=== PATIENT | female | born 1985 | race Caucasian/White ===

== ENCOUNTER 2017-04-04 16:09 | Inpatient (IN) | payer BC, OTHER ==
[~2017-04-04] VITALS: Ht 162.6 cm; Wt 51.3 kg
--- NOTE | 2017-04-04 00:30 | NUR ---
PREADMISSION NOTE: 31 year old, well-nourished, caucasion female seen sitting in [facility] Intake chair. Upon greeting her, patient smiles and states, "hi, how are you?" Patient states that she is allergic to Toradol,Amoxicillin,Buspar and Darvocet, however she states that she does take Ibuprofen and other NSAIDS with no negative issues. Patient further states, " As a matter of fact, I took 800 of Ibuprofen before I came here, because I fell down some stairs last night and my back and left arm hurt a little from the fall and the Ibuprofen helped". Patient states that she brought no medications with her to [facility] and that she has pre-existing conditions of: Degenerative disc disease, Anxiety, Depression and TMJ and she has had 3 seizures (drug-related) in her life, the last one being 6 months ago. Explanation given to patient about [facility] Recovery floor protocol and patient responded," Okay". Vital signs are: 98-102-18 127/87, O2 Sat 98%. Patient is being admitted for Fentanyl withdrawal.
[2017-04-05] VITALS: BP 130/96
--- NOTE | 2017-04-05 00:47 | NUR ---
ADMISSION NOTE: Patient admitted to [facility], to room # 314, ambulatory, after being given a tour of [facility]. Patient's gait is steady. Patient's color is pink and her skin is clean, warm, dry and intact. Medium-sized round shaped reddened area noted on left elbow area. Patient states that she "fell down 6 to 7 stairs last night at home in [place] and since then her left arm and her back hurt a little bit. Patient states that she did not seek any medical attention for her fall, though she did take 8oo mg of Ibuprofen for pain relief, which she states really helped her. Patient states that her back and left arm discomfort at this time is an 8/10 pain scale. Patient moves all her extremities fully WNL. Patient is 5 feet and 4 inches tall and she weighs 113 lbs. Patient states that she has pre-existing conditions of: Anxiety, Depression, Degenerative Disc Disease and TMJ, "though I don't have the TMJ all the time." Patient states that she has no PCP and has brought no medications with her to [facility]. Patient states that she has had 3 total seizures ( drug-related) in her life, the last one occurring 6 months ago. Patient states that though she has an allergy to: amoxicillin, darvocet, buspar and toradol, she takes other NSAIDS, including ibuprofen, with no problems or negative reactions. This is patient's first detox admission anywhere and she is admitted for Fentanyl withdrawal. Patient states that she has been using Fentanyl daily, 1 gram, snorted for the past 3 months, last use was on 04/04/17, in AM, " a very small amount". Patient started using Fentanyl in November. Patient is oriented to person, place, day and her personal situation. Reoriented to date and time. Patient took sandwich snack and juice. Vital signs are: 97.9-106-18 130/96, O2 Sat 100%, COWS 7. Patient is cooperative and verbally appropriate for the most part, when interacting with nurse, however mood/affect is flat, depressed but also anxious. Patient cries easily but stops abruptly. Patient states that she basically never leaves her house much and she is prone to having panic attacks. Patient oriented to her room and nurse call light. Seizure precautions in place. Bed is locked and in lowest position, bed rails are up X 2 and call light within patient's easy reach. Addendum: 04/05/17 at 1101 by SKY KUMAR RN PT STATES SHE TOOK A VALIUM( UNSURE OF MG) A COUPLE OF DAYS AGO BUT DOES NOT TAKE BZOS. REGULARLY.
[2017-04-05 01:10] LABS: *URINE HCG, QUAL NEGATIVE (NEGATIVE)
[2017-04-05 01:13] LABS: *AMPHETAMINE, URINE NEGATIVE (NEGATIVE); *BARBITURATE, URINE NEGATIVE (NEGATIVE); *CANNABINOID, URINE NEGATIVE (NEGATIVE); *COCCAINE, URINE NEGATIVE (NEGATIVE); *OPIATE, URINE POSITIVE (NEGATIVE); *PHENCYCLIDINE SCREEN,URINE NEGATIVE (NEGATIVE)
[2017-04-05] MEDS: diphenhydrAMINE 50 MG CAPSULE PO PRN (01:57)
[2017-04-05] MEDS: IBUPROFEN 400 MG TABLET PO PRN ×2 (01:58→18:17)
[2017-04-05] MEDS: CLONIDINE HCL 0.1 MG TABLET PO PRN ×3 (01:58→21:10)
[2017-04-05] MEDS: HYDROXYZINE PAMOATE 25 MG CAPSULE PO PRN ×3 (01:59→18:17)
[2017-04-05] MEDS ORDERED: LOPERAMIDE HCL 2 MG CAPSULE PO PRN ×2 (02:00)
[2017-04-05] MEDS ORDERED: BUPRENORPHINE HCL 2 MG TAB.SUBL SL PRN ×2 (02:00→13:00)
[2017-04-05] MEDS ORDERED: DICYCLOMINE HCL 20 MG TABLET PO PRN (02:00)
[2017-04-05] MEDS ORDERED: MIRALAX 17 GM POWD.PACK PO PRN (02:00)
[2017-04-05] MEDS ORDERED: ACETAMINOPHEN 325 MG TABLET PO PRN (02:00)
[2017-04-05] MEDS ORDERED: MAG HYDROX/AL HYDROX/SIMETH 30 ML LIQUID UDC PO PRN (02:00)
[2017-04-05] MEDS ORDERED: MAGNESIUM HYDROXIDE 30 ML LIQUID UDC PO PRN (02:00)
[2017-04-05] MEDS ORDERED: ONDANSETRON 4 MG/2 ML VIAL IM PRN (02:00)
[2017-04-05] MEDS ORDERED: IBUPROFEN 400 MG TABLET ONE (02:03)
[2017-04-05] MEDS ORDERED: diphenhydrAMINE 50 MG CAPSULE ONE (02:04)
[2017-04-05] MEDS ORDERED: CLONIDINE HCL 0.1 MG TABLET ONE (02:04)
[2017-04-05] MEDS ORDERED: HYDROXYZINE PAMOATE 25 MG CAPSULE ONE (02:05)
[2017-04-05 04:00] VITALS: BP 121/88
--- NOTE | 2017-04-05 06:30 | NUR ---
0630 Patient slept a total of 3 hours and she had 1 void and no stools. Total intake was 300 ml. V/SS afebrile, last COWS 4 at 0400. Patient is presently sleeping soundly in stable condition with eyes closed and respirations unlabored at 12.
--- NOTE | 2017-04-05 07:05 | NUR ---
Patient not awakened for COWS assess.
[2017-04-05 08:00] VITALS: BP 107/80
[2017-04-05 08:08] LABS: BASOPHILS # (AUTO) 0.1 K/uL (0.0-8.0); BASOPHILS % (AUTO) 0.7 % (0.0-2.0); EOSINOPHILS # (AUTO) 0.2 K/uL (0.0-0.7); HEMATOCRIT 41.7 % (37-47); HEMOGLOBIN 13.9 G/DL (12.0-16.0); LYMPHOCYTES # (AUTO) 2.4 K/UL (0.8-4.8); LYMPHOCYTES % (AUTO) 22.8 % (20.5-51.5); MEAN CORPUSCULAR HEMOGLOBIN 30.2 UUG (27.0-31.0); MEAN CORPUSCULAR HGB CONC 33 g/dL (32.0-37.0); MEAN CORPUSCULAR VOLUME 90.4 FL (81.0-99.0); MONOCYTES # (AUTO) 0.7 K/UL (0.1-1.30); MONOCYTES % (AUTO) 6.4 % (0.0-11.0); NEUTROPHILS # (AUTO) 7.2 K/UL (1.8-8.9); NEUTROPHILS % (AUTO) 68.1 % (38.5-71.5); PLATELET COUNT (AUTO) 214 K/UL (150-450); RED BLOOD CELL COUNT(AUTO) 4.61 MIL/UL (4.2-5.4); WHITE BLOOD COUNT (AUTO) 10.6 K/UL (4.0-11.2)
--- NOTE | 2017-04-05 08:15 | NUR ---
START OF SHIFT: RECEIVED PT A/O X 4. SHE REPORTS ANXIETY,CHILLS,SWEATS,BODY ACHES,MUSCLE CRAMPS AND IRRITABILITY.COWS 4. PRN CLONIDINE,VISTARIL,ROBAXIN AND BENTYL GIVEN TO MANAGE S/S OF W/D. WILL MONITOR EFFECTIVENESS OF PRN MEDS. PPD PLANTED TO [facility]. ENCOURAGED INCREASED FLUIDS. SUBUTEX PRN AVAILABLE IF NEEDED. EDUCATED PT ON MEDICATIONS AND TREATMENT PLAN. WILL CONTINUE TO PROVIDE SAFE AND SUPPORTIVE ENVIRONMENT.
[2017-04-05 08:57] LABS: ETHANOL < 3 MG/DL (0-0)
[2017-04-05 09:00] LABS: ALANINE AMINOTRANSFERASE 18 U/L (14-59); ALKALINE PHOSPHATASE 166 U/L (50-136); AMYLASE 55 U/L (25-115); BILIRUBIN,TOTAL 0.3 mg/dL (0.2-1.0); CARBON DIOXIDE 28 mmol/L (21-32); CHLORIDE 103 mmol/L (98-107); CREATININE 0.9 mg/dL (0.6-1.3); GLUCOSE 104 mg/dL (74-106); MAGNESIUM 1.9 mg/dL (1.8-2.4); TOTAL PROTEIN, SERUM 7.1 g/dL (6.4-8.2); UREA NITROGEN, BLOOD 10 mg/dL (7-18)
[2017-04-05] MEDS ORDERED: TUBERCULIN,PURIF.PROT.DERIV. 5 TU/0.1 ML TEST ID ONE (09:00)
[2017-04-05 09:19] LABS: ASPARTATE AMINOTRANSFERASE 17 U/L (15-37); LIPASE 120 U/L (73-393)
[2017-04-05] MEDS: METHOCARBAMOL 750 MG TABLET PO PRN ×2 (09:54→21:10)
[2017-04-05] MEDS: MULTIVITAMINS,THERAPEUTIC TABLET PO SCH (09:54)
[2017-04-05 10:38] LABS: THYROID STIMULATING HORMONE 0.335 mIU/mL (0.358-3.740)
[2017-04-05 12:00] VITALS: BP 118/81
--- NOTE | 2017-04-05 15:40 | NUR ---
PRN SUBUTEX 4 MG SL GIVEN FOR REPORTED CHILLS,BODY ACHES,SWEATS,ANXIETY AND RESTLESSNESS AND IRRITABILITY. COWS 12
[2017-04-05 16:00] VITALS: BP 143/88
--- NOTE | 2017-04-05 16:10 | NUR ---
COWS 8. PT STATES SHE FEELS MUCH BETTER. SUBUTEX PRN EFFECTIVE.
--- NOTE | 2017-04-05 18:47 | NUR ---
END OF SHIFT: PT IS A/O X 4. SHE C/O BODY ACHES CHILLS,SWEATS AND ANXIETY THIS AM COWS 4 AND PRN VISTARIL,CLONIDINE,ROBAXIN GIVEN AND MILDLY EFFECTIVE. LATER IN SHIFT PT REPORTED SAME COMPLAINTS AND WAS FIDGETY AND IRRITABLE. COWS 12. PRN SUBUTEX 4 MG SL GIVEN AND EFFECTIVE. PT ATTENDED GROUPS AND WAS COMPLIANT WITH INCREASED FLUIDS. PPD PLANTED TO [facility] . WILL PASS SHIFT REPORT TO ONCOMING NIGHT NURSE.
[2017-04-05 20:00] VITALS: BP 116/75
--- NOTE | 2017-04-05 20:00 | NUR ---
START OF SHIFT NOTE PATIENT IN THE ROOM. ALERT AND ORIENTED X 4. RESPIRATION EVEN AND UNLABORED. PATIENT STATES SHES BETTER THAN THIS MORNING. PATIENT C/O HOT AND COLD SWEATS, ANXIETY . NO N/V, C/O PAIN ON LEFT ARM 04/25. RECEIVED REPORT FROM DAY SHIFT NURSE. PATIENT IS A 31 YEAR OLD FEMALE, ADMITTED FOR FENTANYL DEPENDENCE. PATIENT IS TO START SUBUTEX TAPER TOMORROW. PATIENT IS FULL CODE, REGULAR DIET AND ALLERGIC TO AMOXICILLIN , TORADOL, DARVOCET AND BUSPAR . DENIES ALLERGY TO OTHER NSAIDS. UPON ADMISSION, PATIENT IS ON FENTANYL 1 GRAM (SNORTED) FOR 3 MONTHS. 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 PATIENT WITH HISTORY OF 3 SEIZURES (LAST ONE 6 MONTHS AGO). PATIENT IS FIRST TIME IN DETOX TREATMENT. PPD GIVEN TO [facility]. SKIN INTACT.LEFT ELBOW AREA SLIGHTLY REDDENED DUE TO FALL ON 04/03/17 PATIENT WAS GIVEN PRN CLONIDINE, MOTRIN, ROBAXIN , VISTARIL AND ONE TIME SUBUTEX . LAST COWS 8. PATIENT ATTENDING GROUPS. EATING AND DRINKING FLUIDS WELL. ON FALL/SEIZURE PRECAUTION. SAFETY MEASURES IN PLACE. CALL LIGHT IN REACH. WILL CONTINUE TO MONITOR.
[2017-04-05] MEDS: LEVETIRACETAM 500 MG TABLET PO SCH (21:10)
--- NOTE | 2017-04-05 21:10 | NUR ---
PRN CLONIDINE AND ROBAXIN ADMINISTRATION PATIENT WAS GIVEN CLONIDINE FOR SWEATING , ANXIETY AND ROBAXIN FOR LEFT ARM PAIN 04/25. WILL MONITOR FOR EFFECTIVENESS
--- NOTE | 2017-04-05 22:10 | NUR ---
PRN CLONIDINE AND ROBAXIN RE-ASSESSMENT PATIENT STATES CLONIDINE AND ROBAXIN HELPFUL. ANXIETY SUBSIDED AND PAIN LEVEL 2/10, TOLERABLE. WILL CONTINUE TO MONITOR.
[2017-04-06] VITALS (8 sets, daily range): BP systolic 90–116; BP diastolic 47–72
[2017-04-06] MEDS: HYDROXYZINE PAMOATE 25 MG CAPSULE PO PRN ×4 (00:36→21:31)
[2017-04-06] MEDS: diphenhydrAMINE 50 MG CAPSULE PO PRN (00:36)
--- NOTE | 2017-04-06 00:36 | NUR ---
PRN VISTARIL AND BENADRYL ADMINISTRATION PATIENT C/O ANXIETY AND REQUESTS FOR SLEEP AID. PRN VISTARIL AND BENADRYL GIVEN. WILL MONITOR FOR EFFECTIVENESS
--- NOTE | 2017-04-06 01:36 | NUR ---
PRN BENADRYL AND VISTARIL RE-ASSESSMENT PATIENT IN BED, ASLEEP. RESPIRATION EVEN AND UNLABORED. RR 14. NO S/S OF DISTRESS. SAFETY MEASURES IN PLACE. CALL LIGHT IN REACH. WILL CONTINUE TO MONITOR.
--- NOTE | 2017-04-06 07:10 | NUR ---
END OF SHIFT NOTE PATIENT REMAIN ALERT AND ORIENTED X 4. RESPIRATION EVEN AND UNLABORED.PATIENT C/O HOT AND COLD SWEATS, ANXIETY . NO N/V, C/O PAIN ON LEFT ARM 04/25 DURING SHIFT. PATIENT IS A 31 YEAR OLD FEMALE, ADMITTED FOR FENTANYL DEPENDENCE. PATIENT IS TO START SUBUTEX TAPER TODAY. PATIENT IS FULL CODE, REGULAR DIET AND ALLERGIC TO AMOXICILLIN , TORADOL, DARVOCET AND BUSPAR . DENIES ALLERGY TO OTHER NSAIDS. UPON ADMISSION, PATIENT IS ON FENTANYL 1 GRAM (SNORTED) FOR 3 MONTHS. 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 PATIENT WITH HISTORY OF 3 SEIZURES (LAST ONE 6 MONTHS AGO). PATIENT IS FIRST TIME IN DETOX TREATMENT. PPD GIVEN TO [facility]. SKIN INTACT.LEFT ELBOW AREA SLIGHTLY REDDENED DUE TO FALL ON 04/03/17. PATIENT WAS GIVEN PRN CLONIDINE, ROBAXIN AT 2110 AND VISTARIL AND BENADRYL AT 0036 . LAST COWS 1 . PATIENT ATTENDING GROUPS. EATING AND DRINKING FLUIDS WELL. PATIENT COMPLIANT WITH MEDICATION AND TREATMENT PLAN. REMAIN FREE OF INJURY. NO EPISODE OF SEIZURE DURING SHIFT. ON FALL/SEIZURE PRECAUTION. SAFETY MEASURES IN PLACE. CALL LIGHT IN REACH. WILL CONTINUE TO MONITOR. SLEPT 6 HOURS . FLUID INTAKE 1,796 ML. VOIDED X 6. NO BM.
[2017-04-06 08:08] LABS: HEPATITIS B SURFACE AG Negative (Negative)
[2017-04-06] MEDS ORDERED: 4 DAY TAPER BUPRENORPHINE -SERENITY PROTOCOL SL PRN (09:00)
[2017-04-06] MEDS: BUPRENORPHINE HCL 2 MG TAB.SUBL SL SCH ×3 (09:16→21:31)
[2017-04-06] MEDS: MULTIVITAMINS,THERAPEUTIC TABLET PO SCH (09:17)
[2017-04-06] MEDS: LEVETIRACETAM 500 MG TABLET PO SCH ×2 (09:17→21:26)
[2017-04-06] MEDS: METHOCARBAMOL 750 MG TABLET PO PRN ×2 (09:19→21:30)
[2017-04-06] MEDS: IBUPROFEN 400 MG TABLET PO PRN ×2 (09:19→15:24)
--- NOTE | 2017-04-06 09:20 | NUR ---
PRN ROBAXIN, IBUPROFEN AND VISTARIL Patient complained of body aches (LUE and back) and anxiety. PRN robaxin, ibuprofen and vistaril given. Will monitor effectiveness of medications.
--- NOTE | 2017-04-06 10:00 | NUR ---
START OF SHIFT Received report from airplane rental clerk nurse. Patient is 31 year old female admitted for medically supervised withdrawal from opiates. Patient is full code with allergies to amoxicillin, buspirone, ketorolac, and propoxyphene. Started Subutex Taper this AM. On assessment this AM: COWS: 4. Denies SOB, chest pain. vitals signs WNL. Reports sweating, body aches (6/10, prn robaxin and ibuprofen given), stuffy nose, anxiety (prn vistaril given). Med compliant with AM meds. Patient reported having good appetite and consumed 100% breakfast. Patient was encouraged to attend group meetings today. Will continue to monitor patient.
--- NOTE | 2017-04-06 10:20 | NUR ---
REASSESSMENT (PRN ROBAXIN, IBUPROFEN AND VISTARIL) Patient reports feeling better, anxiety resolved. Pain also decreased to 4/10 from 6/10.
[2017-04-06] MEDS: CLONIDINE HCL 0.1 MG TABLET PO PRN (13:28)
--- NOTE | 2017-04-06 20:00 | NUR ---
START OF SHIFT NOTE PATIENT IN HER ROOM. UPON GREETING, PATIENT C/O ANXIETY, SWEATING. GENERALIZED BODY ACHES 04/25. PATIENT ALERT AND ORIENTED X 4. RESPIRATION EVEN AND UNLABORED. NO N/V. RECEIVED REPORT FROM DAY SHIFT NURSE. PATIENT IS A 31 YEAR OLD FEMALE , ADMITTED FOR FENTANYL WITHDRAWAL. PATIENT STARTED ON SUBUTEX TAPER TODAY. PATIENT IS FULL CODE, REGULAR DIET AND ALLERGIC TO AMOXICILLIN, TORADOL, DARVOCET AND BUSPAR. DENIES ALLERGY TO OTHER NSAIDS. UPON ADMISSION, PATIENT IS USING FENTANYL 1 GRAM (SNORTED) FOR 3 MONTHS. PATIENT REPORTS PMH OF ANXIETY, DEPRESSION. 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 HISTORY OF 3 SEIZURES TOTAL (LAST ONE 6 MONTHS AGO). SKIN INTACT. PATIENT STATES SHE FELL PRIOR TO ADMISSION. LEFT ELBOW AREA SLIGHTLY REDDENED. PATIENT WAS GIVEN PRN ROBAXIN, VISTARIL, MOTRIN AND CLONIDINE . LAST COWS 4. SAFETY MEASURES IN PLACE. CALL LIGHT IN REACH. WILL CONTINUE TO MONITOR. SLEPT HOURS. FLUID INTAKE ML. VOIDED X . BM
[2017-04-06] MEDS: TRAZODONE 100 MG TABLET PO SCH (21:30)
[2017-04-06] MEDS: GABAPENTIN 300 MG CAPSULE PO SCH (21:30)
--- NOTE | 2017-04-06 21:30 | NUR ---
PRN VISTARIL AND ROBAXIN ADMINISTRATION PATIENT C/O ANXIETY AND GENERALIZED BODY ACHES 04/25. PRN VISTARIL AND MOTRIN GIVEN. WILL MONITOR FOR EFFECTIVENESS
--- NOTE | 2017-04-06 22:30 | NUR ---
PRN ROBAXIN AND VISTARIL RE-ASSESSMENT PATIENT STATES ANXIETY SUBSIDED AND PAIN LEVEL 2/10, TOLERABLE . WILL CONTINUE TO MONITOR.
[2017-04-07] VITALS: BP 96/60
[2017-04-07] MEDS: diphenhydrAMINE 50 MG CAPSULE PO PRN (00:37)
[2017-04-07] MEDS: IBUPROFEN 400 MG TABLET PO PRN ×2 (00:37→14:48)
--- NOTE | 2017-04-07 00:37 | NUR ---
PRN BENADRYL AND MOTRIN ADMINISTRATION PATIENT C/O LOWE BACK PAIN 04/25 AND REQUESTS FOR SLEEP AID. PRN BENADRYL AND MOTRIN GIVEN. WILL MONITOR FOR EFFECTIVENESS
--- NOTE | 2017-04-07 01:37 | NUR ---
AMELIE PERALTA AND SAFIA RE-ASSESSMENT PATIENT ASLEEP AT THIS TIME. NO S/S OF DISTRESS. NO FACIAL GRIMACING. WILL CONTINUE TO MONITOR.
--- NOTE | 2017-04-07 04:00 | NUR ---
COWS/VS PATIENT ASLEEP . PATIENT REFUSED TO BE WOKEN UP FOR VS. RESPIRATION EVEN AND UNLABORED. RR 14. UNABLE TO ASSESS COW AT THIS TIME.
--- NOTE | 2017-04-07 07:10 | NUR ---
Start of Shift Endorsement received from nightshift nurse. Pt is a 31 y/o female admitted for Fentanyl dependence. Pt has been placed on a 5 day Subutex taper. Pt is mildly withdrawing at this time AEB COWS 3 at 0400. PT received PRN Robaxin, Vistaril, Benadryl and Motrin. PT reports sleeping 7 hours. VS WNL. Full Code. PT is alert and oriented x4. Pt is in STABLE condition at this time. Remains compliant with medication and diet regimen. All needs have been met, All safety measures in place per hospital policy. Bed in lowest position, side rails up x2, call-light within reach. Will continue to monitor
--- NOTE | 2017-04-07 07:26 | NUR ---
END OF SHIFT NOTE MONITORED PATIENT THROUGHOUT SHIFT. PATIENT COMPLIANT WITH MEDICATIONS AND TREATMENT PLAN. PATIENT ALERT AND ORIENTED X 4. RESPIRATION EVEN AND UNLABORED. NO SEIZURE DURING SHIFT. REMAIN FREE OF INJURY. PATIENT IS A 31 YEAR OLD FEMALE , ADMITTED FOR FENTANYL WITHDRAWAL. PATIENT STARTED ON SUBUTEX TAPER TODAY. PATIENT IS FULL CODE, REGULAR DIET AND ALLERGIC TO AMOXICILLIN, TORADOL, DARVOCET AND BUSPAR. DENIES ALLERGY TO OTHER NSAIDS. UPON ADMISSION, PATIENT IS USING FENTANYL 1 GRAM (SNORTED) FOR 3 MONTHS. PATIENT REPORTS PMH OF ANXIETY, DEPRESSION. 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 HISTORY OF 3 SEIZURES TOTAL (LAST ONE 6 MONTHS AGO). SKIN INTACT. PATIENT STATES SHE FELL PRIOR TO ADMISSION. LEFT ELBOW AREA SLIGHTLY REDDENED. PATIENT WAS GIVEN PRN ROBAXIN, MOTRIN, VISTARIL AND BENADRYL . LAST COWS 3. SAFETY MEASURES IN PLACE. CALL LIGHT IN REACH. WILL CONTINUE TO MONITOR. SLEPT 7 HOURS. FLUID INTAKE OF 1,000 ML. VOIDED X 1. BM X 1.
[2017-04-07 08:00] VITALS: BP 111/71
[2017-04-07] MEDS ORDERED: BUPRENORPHINE HCL 2 MG TAB.SUBL SL SCH (09:00)
[2017-04-07] MEDS: GABAPENTIN 300 MG CAPSULE PO SCH ×3 (09:03→20:37)
[2017-04-07] MEDS: LEVETIRACETAM 500 MG TABLET PO SCH ×2 (09:03→20:37)
[2017-04-07] MEDS: MULTIVITAMINS,THERAPEUTIC TABLET PO SCH (09:04)
[2017-04-07] MEDS: HYDROXYZINE PAMOATE 25 MG CAPSULE PO PRN (09:13)
[2017-04-07] MEDS: METHOCARBAMOL 750 MG TABLET PO PRN ×2 (09:13→21:38)
[2017-04-07 12:00] VITALS: BP 118/69
[2017-04-07] MEDS: HYDROXYZINE PAMOATE 25 MG CAPSULE PO SCH ×3 (14:07→20:37)
[2017-04-07] MEDS: BUPRENORPHINE HCL 2 MG TAB.SUBL SL SCH ×2 (14:11→20:37)
[2017-04-07 16:00] VITALS: BP 128/88
--- NOTE | 2017-04-07 19:16 | NUR ---
End of Shift Endorsement given to nightshift nurse. Pt is a 31 y/o female admitted for Fentanyl dependence. Pt has been placed on a 5 day Subutex taper. Pt is mildly withdrawing at this time AEB COWS 2 at 1600. PT received PRN Robaxin, Vistaril and Motrin. Dr. Whittington has added scheduled Vistaril 50mg for the pt. Pt participated in groups and activities. Educated pt on diet and medication regimen. Intake: 2496ml, Void x7, BM x0. VS WNL. Full Code. PT is alert and oriented x4. Pt is in STABLE condition at this time. Remains compliant with medication and diet regimen. All needs have been met, All safety measures in place per hospital policy. Bed in lowest position, side rails up x2, call-light within reach. Will continue to monitor
--- NOTE | 2017-04-07 19:16 | NUR ---
START OF SHIFT NOTE Patient is a 31 year old female admitted to [facility] on 04/04/2017 for Fentanyl Dependence. Patient continue 5 day Subutex Taper since 04/06/2017 which tolerated well. Patient reports allergies to Amoxicillin, Buspirone, Ketorolac, Propoxyphene, has Regular Diet, is placed on Full Code and Fall and Seizures Precautions. Past Medical History: History of Seizures, with "Last was 6 months ago", DDD Spine w/ cLBP, Endometriosis. Past Surgical History: Multiple laparoscopy for endometriosis, Hysterectomy, Tonsillectomy, Cystoscopy. Upon endorsement received report from day shift nurse: Last COWS 4 at 1600. Patient c/o anxiety, agitation, nervousness, tremors, body aches, VS remains stable during day shift.. No acute events noted. Respirations are even and unlabored. Patient denies SOB and chest pain. Lungs are clear thoroughly. Abdomen is soft and non-tender. Bowel Sounds is active in all four quadrants. Last Bowel Movement was today on "04/07/2017 in the morning". Skin is intact, warm and dry to touch. Patient remains compliant for therapy, medications, and diet regimen. Encourage to attend group activities. Encourage fluids intake as tolerated. All needs met. Safety measures in the place. Call light within reach, bed is locked and in the lowest position, bed rails up x2. Will to continue to monitor closely.
[2017-04-07 20:00] VITALS: BP 129/75
[2017-04-07] MEDS: TRAZODONE 100 MG TABLET PO SCH (20:37)
--- NOTE | 2017-04-07 21:38 | NUR ---
PRN ROBAXIN 750 MG 1 TAB PO ADMINISTRATION Patient c/o muscles spasm. Patient's assessed. COWS 4. Patient c/o increased anxiety, agitation, nervousness, sweats, and muscles spasms. VS WNL. PRN Robaxin 750 mg 1 tab PO, administrated as ordered with full glass of water. All needs met. Safety measures in the place. Call light within reach, bed in the lowest position, and locked, padded bed rails up x2. Will continue to monitor closely.
--- NOTE | 2017-04-07 22:38 | NUR ---
RE-ASSESSMENT Patient is sleeping. Respirations even and unlabored. RR: 16. PRN Robaxin PO was effective. All needs met. Safety measures in the place. Call light within reach, bed in the lowest position, and locked, padded bed rails up x2. Will continue to monitor closely.
[2017-04-08] VITALS: BP 94/50
[2017-04-08 04:00] VITALS: BP 106/60
--- NOTE | 2017-04-08 07:10 | NUR ---
Start of Shift Endorsement received from nightshift nurse. Pt is a 31 y/o female admitted for Fentanyl dependence. Pt has been placed on a 5 day Subutex taper. Pt is mildly withdrawing at this time AEB COWS 2 at 0400. PT received PRN Robaxin. PT reports sleeping 10 hours. VS WNL. Full Code. PT is alert and oriented x4. Pt is in STABLE condition at this time. Remains compliant with medication and diet regimen. All needs have been met, All safety measures in place per hospital policy. Bed in lowest position, side rails up x2, call-light within reach. Will continue to monitor
--- NOTE | 2017-04-08 07:11 | NUR ---
END OF SHIFT NOTE: Patient is a 31 year old female admitted to [facility] on 04/04/2017 for Fentanyl Dependence. Patient continue 5 day Subutex Taper since 04/06/2017 which tolerated well. Patient reports allergies to Amoxicillin, Buspirone, Ketorolac, Propoxyphene, has Regular Diet, is placed on Full Code and Fall and Seizures Precautions. Past Medical History: History of Seizures, with "Last was 6 months ago", DDD Spine w/ cLBP, Endometriosis. Past Surgical History: Multiple laparoscopy for endometriosis, Hysterectomy, Tonsillectomy, Cystoscopy. Last COWS 5 at 0400. Patient presented with following s/s of withdrawal: anxiety, agitation, nervousness, sweats, tremors, sweats, tremors that can be felt, muscles spasm and mild diffuse body discomfort. VS at 0400: T: 98.6, BP: 106/60, HR:60, RA O2SAT: 97%; RR: 16. Respirations are even and unlabored. pain"0/10". No acute events noted. Patient denies SOB and chest pain. Skin is intact, warm and dry to touch. PRN Robaxin 750 mg 1 tab PO for muscles spasm administrated as ordered, and was effective. Patient remains compliant for therapy, medications, and diet regimen. Encouraged to attend group activities. Encouraged fluids intake as tolerated. Patient slept 6 hours, intake 1,355 ml, voided x3. All needs met. Safety measures in the place by hospital policy: bed in the lowest position, and locked, bed rails up x2.
[2017-04-08 08:00] VITALS: BP 100/58
[2017-04-08] MEDS: BUPRENORPHINE HCL 2 MG TAB.SUBL SL SCH ×3 (08:46→21:28)
[2017-04-08] MEDS: LEVETIRACETAM 500 MG TABLET PO SCH ×2 (08:46→21:26)
[2017-04-08] MEDS: HYDROXYZINE PAMOATE 25 MG CAPSULE PO SCH ×4 (08:46→21:25)
[2017-04-08] MEDS: GABAPENTIN 300 MG CAPSULE PO SCH ×3 (08:46→21:26)
[2017-04-08] MEDS: MULTIVITAMINS,THERAPEUTIC TABLET PO SCH (08:46)
[2017-04-08] MEDS: METHOCARBAMOL 750 MG TABLET PO PRN ×2 (11:10→21:27)
[2017-04-08 12:00] VITALS: BP 127/71
[2017-04-08 16:00] VITALS: BP 136/70
--- NOTE | 2017-04-08 19:23 | NUR ---
End of Shift Endorsement given to nightshift nurse. Pt is a 31 y/o female admitted for Fentanyl dependence. Pt has been placed on a 5 day Subutex taper. Pt is mildly withdrawing at this time AEB COWS 2 at 1600. PT received PRN Robaxin. Pt participated in groups and activities. Reinforced Education on diet and medication regimen. Educated pt on sign and symptoms of withdrawal and encouraged deep breathing to relieve her anxiety. Intake: 2906ml, Void x6, BM x1. VS WNL. Full Code. PT is alert and oriented x4. Pt is in STABLE condition at this time. Remains compliant with medication and diet regimen. All needs have been met, All safety measures in place per hospital policy. Bed in lowest position, side rails up x2, call-light within reach. Will continue to monitor
--- NOTE | 2017-04-08 19:58 | NUR ---
START OF SHIFT NOTE Pt is a 31 y/o female admitted for Fentanyl dependence and use. Pt has allergies to Amoxicillin, Toradol, Darvocet, and Buspar. Pt reported a PMH of anxiety, depression, degenerative disc disease, TMJ, Total Hysterectomy, Multiple Surgeries r/t gynecological problems. Per day shift nurse pt was placed on a 5 day Subutex taper and is tolerating medication well, with no s/e or a/r reported. Pt received Robaxin 750 mg PO PRN during the day shift. Last COW: 2 (1600). At this time pt is in her room watching television. Pt stated Today was a good day. I feel great. Pt denies any pain/discomfort at this time. Pt is encouraged to notify staff of any changes in condition or of any concerns. Pt verbalized an understanding. All safety measures in place; side rails up x 2, bed locked and in low position and call light within reach. Will continue to monitor.
[2017-04-08 20:00] VITALS: BP 127/80
[2017-04-08] MEDS: TRAZODONE 100 MG TABLET PO SCH (21:27)
--- NOTE | 2017-04-08 21:27 | NUR ---
ROBAXIN PRN ADMINISTRATION Pt reported having body aches. Robaxin 750 mg PO PRN was given. Will monitor for effectiveness.
--- NOTE | 2017-04-08 22:27 | NUR ---
JOHN PRN REASSESSMENT Pt reported " I feel better." PRN effective. Will continue to monitor.
[2017-04-09] VITALS: BP 95/69
--- NOTE | 2017-04-09 04:00 | NUR ---
COW AND VITALS DEFERRED Pt is asleep at this time. COW assessment deferred until client is awake. All safety measures in place. Will continue to monitor. Addendum: 04/09/17 at 0808 by MELODY JEAN LVN Amended: Links added.
--- NOTE | 2017-04-09 07:48 | NUR ---
END OF SHIFT NOTE Pt is a 31 y/o female admitted for Fentanyl dependence and use. Pt has allergies to Amoxicillin, Toradol, Darvocet, and Buspar. Pt reported a PMH of anxiety, depression, degenerative disc disease, TMJ, Total Hysterectomy, Multiple Surgeries r/t gynecological problems. Pt was placed on a 5 day Subutex taper and is tolerating medication well, with no s/e or a/r reported. Pt received Robaxin 750 mg PO PRN during the shift. Last COW: 0 (0000). Pt slept for a total of 7 hours. All safety measures in place. Endorsed to the oncoming nurse.
[2017-04-09 08:00] VITALS: BP 96/66
--- NOTE | 2017-04-09 08:10 | NUR ---
START OF SHIFT: RECEIVED PT A/O X 4. SHE STATES SHE IS SLEEPING WELL. SHE REPORTS SOME BODY ACHES AND INTERMITTENT ANXIETY BUT STATES THE DETOX MEDS ARE EFFECTIVE. COWS 2. SHE STATES SHE IS ATTENDING GROUPS AND ACTIVITIES. ENCOURAGED INCREASED FLUIDS TO ASSIST IN FACILITATING DETOX PROCESS. WILL CONTINUE TO MONITOR NX OFFER SUPPORT.
[2017-04-09] MEDS ORDERED: BUPRENORPHINE HCL 2 MG TAB.SUBL SL SCH (09:00)
[2017-04-09] MEDS: MULTIVITAMINS,THERAPEUTIC TABLET PO SCH (09:29)
[2017-04-09] MEDS: GABAPENTIN 300 MG CAPSULE PO SCH ×3 (09:29→21:04)
[2017-04-09] MEDS: LEVETIRACETAM 500 MG TABLET PO SCH ×2 (09:29→21:04)
[2017-04-09] MEDS: HYDROXYZINE PAMOATE 25 MG CAPSULE PO SCH ×4 (09:30→21:03)
[2017-04-09 12:00] VITALS: BP 122/73
[2017-04-09] MEDS: METHOCARBAMOL 750 MG TABLET PO PRN ×2 (13:19→21:53)
[2017-04-09] MEDS: IBUPROFEN 400 MG TABLET PO PRN (13:19)
--- NOTE | 2017-04-09 13:25 | NUR ---
PRN MOTRIN AND ROBAXIN GIVEN FOR REPORTED BODY ACHES AND H/A 02/23. WILL MONITOR EFFECTIVENESS OF PRN.
--- NOTE | 2017-04-09 14:25 | NUR ---
PRNS EFFECTIVE . PT STATES SHE HAS NO H/A AND HER BODY ACHES HAVE LESSENED.
[2017-04-09 16:00] VITALS: BP 108/60
--- NOTE | 2017-04-09 18:54 | NUR ---
END OF SHIFT: PT CONTINUES ON SUBUTEX TAPER. SHE C/O BODY ACHES AND A H/A TODAY. MOTRIN AND ROBAXIN GIVEN PRN AND EFFECTIVE. SHE ATTENDS GROUPS AND INTERACTS WITH PEERS. LAST COWS 3. SHE IS COMPLIANT WITH MEDS AND TREATMENT PLAN. WILL PASS SHIFT REPORT TO ONCOMING NIGHT NURSE.
--- NOTE | 2017-04-09 19:15 | NUR ---
START OF SHIFT Received 31 year old female patient admitted on 04/04/17 for opiate dependency. Pt is full code with allergy to amoxicillin, Toradol, Darvocet, and BuSpar. 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 Pt reports using Fentanyl 1 gram (snort) daily for 3 months. Last dose was 04/04/17. Pt was placed on Subutex taper started on 04/06/17. Pt currently on day 4/4 of taper and tolerating well. Per endorsement, pt received PRN Motrin and Robaxin. Pt is alert and oriented x4, breathing is even and unlabored, safety measures in place. Will continue to monitor.
[2017-04-09 20:00] VITALS: BP 115/75
[2017-04-09] MEDS: TRAZODONE 100 MG TABLET PO SCH (21:05)
--- NOTE | 2017-04-09 21:56 | NUR ---
PRN ROBAXIN Pt complains of body aches 12/24. PRN Robaxin administered as ordered. Breathing even and unlabored, safety measures in place. Will monitor effectiveness.
--- NOTE | 2017-04-09 22:56 | NUR ---
PRN ROBAXIN REASSESSMENT PRN Robaxin effective. Pt is lying in bed with eyes closed noted to be asleep. Respirations 16, breathing is even and unlabored, safety measures in place. Will continue to monitor.
[2017-04-10] VITALS: BP 105/70
--- NOTE | 2017-04-10 | NUR ---
COWS DEFERRED COWS deferred d/t pt lying in bed with eyes closed noted to be asleep. Respirations 16, breathing is even and unlabored, safety measures in place. Will continue to monitor.
--- NOTE | 2017-04-10 04:00 | NUR ---
VITALS REFUSED/COWS DEFERRED 0400 vitals refused. COWS deferred d/t pt is lying in bed with eyes closed noted to be asleep. Respirations 16, breathing is even and unlabored, safety measures in place. Will monitor.
--- NOTE | 2017-04-10 06:59 | NUR ---
END OF SHIFT Pt is a 31 year old female patient admitted on 04/04/17 for opiate dependency. Pt is full code with allergy to amoxicillin, Toradol, Darvocet, and Buspar. Pt reports PMHx of anxiety, depression, degenerative disc disease, TMJ, total hysterectomy, and multiple surgeries for calender tender issues. Pt continues on Subutex taper started on 04/06/17 and tolerating well. At 2153 she received PRN Robaxin. She slept a total of 7 hrs, Intake: 1082 mL, Void: x2, BM: 0. COWS: 4. Pt remains alert and oriented x4, breathing is even and unlabored, safety measures in place. Endorsed to oncoming shift.
--- NOTE | 2017-04-10 07:40 | NUR ---
START OF SHIFT NOTE: Received report from ocean export agent nurse. Pt is a 31 year old female patient admitted on 04/04/17 for opiate dependency. Completed a 4 day Subutex taper. Color good, skin warm and dry. Respirations even and unlabored. Resting in bed. safety precautions observed. Call light within reach. Will continue to monitor.
[2017-04-10 08:00] VITALS: BP 118/76
[2017-04-10] MEDS: LEVETIRACETAM 500 MG TABLET PO SCH ×2 (08:39→20:47)
[2017-04-10] MEDS: GABAPENTIN 300 MG CAPSULE PO SCH ×3 (08:39→20:47)
[2017-04-10] MEDS: HYDROXYZINE PAMOATE 25 MG CAPSULE PO SCH ×4 (08:39→20:48)
[2017-04-10] MEDS: MULTIVITAMINS,THERAPEUTIC TABLET PO SCH (08:40)
[2017-04-10] MEDS: METHOCARBAMOL 750 MG TABLET PO PRN ×2 (08:44→20:48)
[2017-04-10] MEDS: ONDANSETRON ODT 4 MG TAB.RAPDIS SL PRN (08:44)
--- NOTE | 2017-04-10 08:51 | NUR ---
VSS COWS 5 c/o nausea and muscle aches. Robaxin 750mg po prn and Zofran 4mg sl prn given
--- NOTE | 2017-04-10 09:58 | NUR ---
Pt states feels improved after Zofran and Robaxin prn. Nausea gone and muscle aches diminished.
[2017-04-10 12:38] VITALS: BP 110/77
[2017-04-10 14:00] LABS: *AMPHETAMINE, URINE NEGATIVE (NEGATIVE); *BARBITURATE, URINE NEGATIVE (NEGATIVE); *CANNABINOID, URINE NEGATIVE (NEGATIVE); *COCCAINE, URINE NEGATIVE (NEGATIVE); *OPIATE, URINE NEGATIVE (NEGATIVE); *PHENCYCLIDINE SCREEN,URINE NEGATIVE (NEGATIVE)
[2017-04-10 16:00] VITALS: BP 100/60
[2017-04-10] MEDS ORDERED: LEVE500T9 PO (16:18)
[2017-04-10] MEDS ORDERED: TRAZ-147 PO (16:18)
[2017-04-10] MEDS ORDERED: DICY20TA28 PO (16:18)
[2017-04-10] MEDS ORDERED: CLON0.1T14 PO (16:18)
[2017-04-10] MEDS ORDERED: GABA-534 PO (16:18)
[2017-04-10] MEDS ORDERED: HYDR-3895 PO (16:18)
[2017-04-10] MEDS ORDERED: METH-406 PO (16:18)
[2017-04-10] MEDS ORDERED: ONDA4TAB11 SL (16:18)
--- NOTE | 2017-04-10 18:39 | NUR ---
END OF SHIFT NOTE: Report given to production supervisor off shift nurse. Pt is a 31 year old female patient admitted on 04/04/17 for opiate dependency. Completed a 4 day Subutex taper. To be discharged in AM. Color good, skin warm and dry. Respirations even and unlabored. Vital signs have remained stable throughout shift. Last COWS 5 @ 1500. Robaxin 750mg po prn and Zofran 4mg sl prn given @ 0845. Resting in bed. Safety precautions observed. Call light within reach.
[2017-04-10 20:00] VITALS: BP 123/77
--- NOTE | 2017-04-10 20:00 | NUR ---
START OF SHIFT NOTE Pt is a 31 y/o female admitted for Fentanyl dependence and use. Pt has allergies to Amoxicillin, Toradol, Darvocet, and Buspar. Pt reported a PMH of anxiety, depression, degenerative disc disease, TMJ, Total Hysterectomy, Multiple Surgeries r/t gynecological problems. Per day shift nurse pt completed taper and is scheduled for discharge tomorrow. Pt received Robaxin 750 mg PO PRN and Zofran 4 mg ODT PRN during the day shift. Last COW: 5 (1600). At this time pt is in her room getting ready to go down for a smoke break. Pt stated "Today was good, but I was nauseous this morning. After I took the Zofran I felt better." Pt denies any pain/discomfort at this time. Pt is encouraged to notify staff of any changes in condition or of any concerns. Pt verbalized an understanding. All safety measures in place; side rails up x 2, bed locked and in low position and call light within reach. Will continue to monitor.
[2017-04-10] MEDS: TRAZODONE 100 MG TABLET PO SCH (20:48)
--- NOTE | 2017-04-10 20:48 | NUR ---
ROBAXIN PRN ADMINISTRATION Pt stated " I'm feeling achy. Not really in pain, just kind of achy. Can I have some Robaxin?" Robaxin 750 mg PO PRN was given. Pt was encouraged to notify staff of any changes in condition or of any further concerns. Pt verbalized an understanding. All safety measures in place. Will monitor for effectiveness.
--- NOTE | 2017-04-10 21:48 | NUR ---
JOHN PRN REASSESSMENT Pt stated " I feel better. The aches went away." PRN effective. Pt was encouraged to notify staff of any changes in condition or of any concerns. Pt verbalized an understanding. Will continue to monitor.
--- NOTE | 2017-04-11 | NUR ---
COW AND VITALS DEFERRED Pt is asleep at this time with no discomfort/distress noted. Breathing is even and unlabored. Assessments deferred until pt is awake. All safety measures in place. Will continue to monitor. Addendum: 04/11/17 at 0219 by MELODY JEAN LVN Amended: Links added.
--- NOTE | 2017-04-11 04:00 | NUR ---
COW AND VITALS REFUSED Pt refused to be assessed and have vitals taken at this time. Pt was encouraged x 3 with risks and benefits explained, but the pt still refused. All safety measures in place. Will continue to monitor. Addendum: 04/11/17 at 0530 by MELODY JEAN LVN Amended: Links added.
--- NOTE | 2017-04-11 07:20 | NUR ---
END OF SHIFT NOTE Pt is a 31 y/o female admitted for Fentanyl dependence and use. Pt has allergies to Amoxicillin, Toradol, Darvocet, and Buspar. Pt reported a PMH of anxiety, depression, degenerative disc disease, TMJ, Total Hysterectomy, Multiple Surgeries r/t gynecological problems. Pt completed taper and is scheduled for discharge today. Pt received Robaxin 750 mg PO PRN during the shift. Last COW: 2 (1999). Pt slept for a total of 8 hours. All safety measures in place. Endorsed to the oncoming nurse.
--- NOTE | 2017-04-11 07:30 | NUR ---
start of shift note: received pt from warehouse supervisor 3rd shift nurse, pt is in stable condition . pt is admitted to [facility] for opiate withdrawal/dependence. pt with complaints of mild body aches and soreness. pt requested for robaxin for muscle aches. pt is set to discharge today. will assist pt in discharging and continue to monitor pt for any changes
[2017-04-11] MEDS: LEVETIRACETAM 500 MG TABLET PO SCH (08:10)
[2017-04-11] MEDS: METHOCARBAMOL 750 MG TABLET PO PRN (08:10)
[2017-04-11] MEDS: GABAPENTIN 300 MG CAPSULE PO SCH (08:10)
[2017-04-11] MEDS: MULTIVITAMINS,THERAPEUTIC TABLET PO SCH (08:10)
[2017-04-11] MEDS: HYDROXYZINE PAMOATE 25 MG CAPSULE PO SCH (08:43)
[2017-04-11] MEDS: ONDANSETRON ODT 4 MG TAB.RAPDIS SL PRN (08:54)
--- NOTE | 2017-04-11 10:31 | NUR ---
discharge note: pt left the unit in stable condition no s/s of pain or discomfort or any withdrawal symptoms. pt verbalized in the morning when she wakes up she feels nauseated. pt requested for zofran while morning medication administration. pt teaching administered and pt verbalized understanding. all personal belongings were returned. pt stated robaxin and zofran was effective. pt will be transferred to [facility] via private car
== END 2017-04-11 10:31 | disposition other institution (70) | DRG 895 ==
LOC: SRC 23:35
PROVIDERS: ADMIT Internal Medicine; ATTEND Internal Medicine
PROC: HZ2ZZZZ Detoxification Services for Substance Abuse Treatment (ICD-10-PCS; principal; 2017-04-04)
PROC: HZ41ZZZ Group Counseling for Substance Abuse Treatment, Behavioral (ICD-10-PCS; 2017-04-05)
DX: F11.23 Opioid dependence with withdrawal (principal); S59.902A Unspecified injury of left elbow, initial encounter; W10.9XXA Fall (on) (from) unspecified stairs and steps, initial encounter; Y92.009 Unspecified place in unspecified non-institutional (private) residence as the place of occurrence of the external cause; M51.36 Other intervertebral disc degeneration, lumbar region; Z90.710 Acquired absence of both cervix and uterus; Z82.49 Family history of ischemic heart disease and other diseases of the circulatory system; G47.00 Insomnia, unspecified; E07.81 Sick-euthyroid syndrome; E02 Subclinical iodine-deficiency hypothyroidism; G40.409 Other generalized epilepsy and epileptic syndromes, not intractable, without status epilepticus; F17.210 Nicotine dependence, cigarettes, uncomplicated
CPT/HCPCS: 36415; 70030-TC; 71010; 73080; 80307; 80346; 80361; 83690; 83735; 84443; 84703; 85025; 86580; 86592; 86705; 86803; 87340; 87806; G0480; Q0162; Q0163